=== PATIENT | female | born 1925 | race Caucasian/White ===

== ENCOUNTER 2016-08-04 18:38 | Inpatient (IN) | payer MEDICARE, BC ==
[2016-08-04] MEDS ORDERED: Sodium Chloride 0.9% 10 ML Syringe FLUSH PRN (19:33)
[2016-08-04] MEDS ORDERED: Sodium Chloride 0.9% 1,000 ML IV ONE (19:33)
[2016-08-04] MEDS ORDERED: Lidocaine 1% 50 ML MDV INJECT ONE (20:15)
--- NOTE | 2016-08-04 20:56 | EDM.PDOC ---
ED HPI GENERAL MEDICAL PROBLEM - General Chief Complaint: Head Injury Stated Complaint: [facility] Time Seen by Provider: 08/04/16 18:56 Source of Information: Reports: Detention Records History Limitations: Reports: No Limitations - History of Present Illness INITIAL COMMENTS - FREE TEXT/NARRATIVE: 89-year-old female presents for evaluation treatment of a head wound. Patient is a resident of the [facility]. She had an unwitnessed fall this afternoon. This occurred around 4 PM today. They have been unable to control the bleeding and thus she presented to the ER. She is not complaining of anything. Patient has dementia and is presently demented but is unable to provide much of a history. Review of records shows no current blood thinners. - Related Data Allergies Allergy/AdvReac Type Severity Reaction Status Date / Time No Known Allergies Allergy Verified 08/04/16 18:42 Home Meds: Home Meds Metoprolol Succinate [Toprol XL] 25 mg PO DAILY 07/06/13 [History] Ramipril [Altace] 10 mg PO DAILY 07/06/13 [History] glipiZIDE [Glipizide Xl] 2.5 mg PO DAILY 07/06/13 [History] metFORMIN [Glucophage XR] 2 tab PO BID 07/06/13 [History] Bisacodyl [Dulcolax] 10 mg RECTAL DAILY PRN 08/04/16 [History] Multivitamin with Minerals [Multivitamins with Minerals] 1 each PO DAILY [History] Sennosides [Senna] 17.2 mg PO DAILY PRN 08/04/16 [History] Past Medical History Cardiovascular History: Reports: High Cholesterol, Hypertension Gastrointestinal History: Reports: Chronic Constipation Neurological History: Reports: Other (See Below) Other Neuro History: dementia Psychiatric History: Reports: Dementia Dermatologic History: Reports: Other (See Below) Other Dermatologic History: contact dermatitis to scalp Social & Family History - Tobacco Use Smoking Status *Q: Never Smoker Second Hand Smoke Exposure: No - Alcohol Use Days Per Week of Alcohol Use: 0 - Recreational Drug Use Recreational Drug Use: No ED ROS GENERAL - Review of Systems Review Of Systems: ROS reveals no pertinent complaints other than HPI. ED EXAM, HEAD INJURY - Physical Exam Exam: See Below Exam Limited By: No Limitations General Appearance: Alert, WD/WN, No Apparent Distress, Other (orientated to person but not to place, month or year; believed to be at her baseline) Head: Scalp Lacerations (left posterior scalp 5cm gapping laceration), Scalp Ecchymosis, Scalp Hematoma, Active Bleeding Nexus Criteria: No: Posterior, Midline Cervical Tenderness, Evidence of Intoxication, Altered Level of Consciousness, Focal Neurological Deficit, Painful Distraction Injuries Eyes: Bilateral Eye: PERRL Ears: Normal External Exam Nose: Normal Inspection Throat/Mouth: Normal Inspection, Normal Lips, Normal Voice, No Airway Compromise Neck: Non-Tender, Full Range of Motion, Normal Alignment, Normal Inspection Respiratory: No Respiratory Distress, Lungs Clear, Chest Non-Tender Cardiovascular: Normal Peripheral Pulses, Regular Rate, Rhythm, Systolic Murmur (grade 3 systolic heart murmur) GI/Abdominal Exam (Abbreviated): Soft, Non-Tender Rectal (Female) Exam: Normal Exam, Normal Rectal Tone, Heme - Stool Extremities: No Evidence of Injury, Non-Tender Neurologic: Alert, Normal Mood/Affect Skin: Normal Color, Warm/Dry - [place] Coma Score Best Eye Response ([place]): (4) Open Spontaneously Best Verbal Response ([place]): (4) Confused Conversation Best Motor Response ([place]): (6) Obeys Commands ED LACERATION/WOUND & KALEIGH PROC - Laceration/Wound Repair Left Posterior Head Lac/wound length in cm: 5 Appearance: Subcutaneous, Linear Distal NVT: Neuro & Vascular Intact, No Tendon Injury Anesthetic Type: Local Local Anesthesia - Lidocaine (Xylocaine): 1% Plain Local Anesthetic Volume: 2cc Skin Prep: Saline, Sterile Drape Suture Size: 4-0 # of Sutures: 7 Suture Type: Nylon, Interrupted, Simple Sterile Dressing Applied: Nurse Complications: Yes Complication Description: Patient lost approximately 1-2 pints of blood before and during suturing process. While completing the final suture the patient had an aparent vasovagal episode where she became unresponsive for approximately 10 -15 sec and we were unable to find a pulse. The patient then became more responsive. We bolused the remaining 1L of NS in and 2 units of blood were ordered. EKG INTERPRETATION EKG Date: 08/04/16 Time: 21:35 Rhythm: NSR Rate (Beats/Min): 75 [place]: Normal P-Wave: Present QRS: Normal ST-T: Normal QT: Prolonged Comparison: NA - No Prior EKG EKG Interpretation Comments: NSR at 75 bpm. Prolonged QT interval. Reviewed by myself and Dr. Thomson. Course - Vital Signs Last Recorded V/S: Last Vital Signs Temp 36.7 C 08/04/16 23:25 Pulse 73 08/04/16 23:25 Resp 16 08/04/16 23:25 BP 110/64 08/04/16 23:25 Pulse Ox 99 08/04/16 22:46 - Orders/Labs/Meds Orders: Active Orders 24 hr Category Date Time Status Cardiac Monitoring [RC] . DIRECTED Care 08/04/16 21:06 Active EKG 12 Lead [EKG Documentation Completion] [RC] STAT Care 08/04/16 21:25 Active Peripheral IV Care [RC] . DIRECTED Care 08/04/16 19:34 Active Chest Abdomen Pelvis w Cont [CT] Stat Exams 08/04/16 20:08 Taken Head wo Cont [CT] Stat Exams 08/04/16 18:52 Taken PATIENT RETYPE [BBK] Stat Lab 08/04/16 19:55 Results RED BLOOD CELLS LP [BBK] Stat Lab 08/04/16 19:55 Results TYPE AND SCREEN [BBK] Stat Lab 08/04/16 19:55 Results Sodium Chloride 0.9% [Saline Flush] Med 08/04/16 19:33 Active 10 ml FLUSH ASDIRECTED PRN Peripheral IV Insertion Adult [OM.PC] Routine Oth 08/04/16 19:33 Ordered Transfuse Red Blood Cells [COMM] Stat Oth 08/04/16 23:08 Ordered Medication Orders Sodium Chloride (Saline Flush) 10 ml FLUSH ASDIRECTED PRN PRN Reason: Keep Vein Open Last Admin: 08/04/16 19:45 Dose: 10 ml Labs: Laboratory Tests 08/04/16 08/04/16 08/04/16 Range/Units 19:35 19:35 19:35 WBC 5.93 (3.98-10.04) K/mm3 RBC 2.86 L (3.98-5.22) M/mm3 Hgb 9.2 L (11.2-15.7) gm/L Hct 28.3 L (34.1-44.9) % MCV 99.0 H (79.4-94.8) fl MCH 32.2 (25.6-32.2) pg MCHC 32.5 (32.2-35.5) g/dl RDW Std Deviation 47.6 H (36.4-46.3) fL Plt Count 176 L (182-369) K/mm3 MPV 10.5 (9.4-12.3) fl Neut % (Auto) 72.0 H (34.0-71.1) % Lymph % (Auto) 17.9 L (19.3-51.7) % [place] % (Auto) 7.9 (4.7-12.5) % Eos % (Auto) 1.7 (0.7-5.8) Baso % (Auto) 0.3 (0.1-1.2) % Neut # (Auto) 4.27 (1.56-6.13) K/mm3 Lymph # (Auto) 1.06 L (1.18-3.74) K/mm3 [place] # (Auto) 0.47 H (0.24-0.36) K/mm3 Eos # (Auto) 0.10 (0.04-0.36) K/mm3 Baso # (Auto) 0.02 (0.01-0.08) K/mm3 PT 11.3 (8.0-13.0) SECONDS INR 1.03 APTT 27 (22-36) SECONDS Sodium 144 (136-145) mEq/L Potassium 4.0 (3.5-5.1) mEq/L Chloride 107 (98-107) mEq/L Carbon Dioxide 24 (21-32) mEq/L Anion Gap 17.0 H (5-15) BUN 32 H (7-18) mg/dL Creatinine 1.1 H (0.55-1.02) mg/dL Est Cr Clr Drug Dosing 27.96 mL/min Estimated GFR (MDRD) 47 (>60) mL/min BUN/Creatinine Ratio 29.1 H (14-18) Glucose 103 (83-115) mg/dL Calcium 8.2 L (8.5-10.1) mg/dL Total Bilirubin 0.4 (0.2-1.0) mg/dL AST 16 (15-37) U/L ALT 20 (14-59) U/L Alkaline Phosphatase 46 (46-116) U/L Troponin I (0.00-0.056) ng/mL B-Natriuretic Peptide (0-100) pg/mL Total Protein 6.6 (6.4-8.2) g/dl Albumin 3.1 L (3.4-5.0) g/dl Globulin 3.5 gm/dL Albumin/Globulin Ratio 0.9 L (1-2) Urine Color (Yellow) Urine Appearance (Clear) Urine pH (5.0-8.0) Ur Specific [place] (1.005-1.030) Urine Protein (Negative) Urine Glucose (UA) (Negative) Urine Ketones (Negative) Urine Occult Blood (Negative) Urine Nitrite (Negative) Urine Bilirubin (Negative) Urine Urobilinogen (0.2-1.0) Ur Leukocyte Esterase (Negative) Urine RBC (0-5) /hpf Urine WBC (0-5) /hpf Ur Epithelial Cells (0-5) /hpf Urine Bacteria (FEW) /hpf Hyaline Casts (0-5) /lpf Urine Mucus (FEW) /hpf Blood Type Gel Antibody Screen Crossmatch 08/04/16 08/04/16 08/04/16 Range/Units 19:35 19:35 19:55 WBC (3.98-10.04) K/mm3 RBC (3.98-5.22) M/mm3 Hgb (11.2-15.7) gm/L Hct (34.1-44.9) % MCV (79.4-94.8) fl MCH (25.6-32.2) pg MCHC (32.2-35.5) g/dl RDW Std Deviation (36.4-46.3) fL Plt Count (182-369) K/mm3 MPV (9.4-12.3) fl Neut % (Auto) (34.0-71.1) % Lymph % (Auto) (19.3-51.7) % [place] % (Auto) (4.7-12.5) % Eos % (Auto) (0.7-5.8) Baso % (Auto) (0.1-1.2) % Neut # (Auto) (1.56-6.13) K/mm3 Lymph # (Auto) (1.18-3.74) K/mm3 [place] # (Auto) (0.24-0.36) K/mm3 Eos # (Auto) (0.04-0.36) K/mm3 Baso # (Auto) (0.01-0.08) K/mm3 PT (8.0-13.0) SECONDS INR APTT (22-36) SECONDS Sodium (136-145) mEq/L Potassium (3.5-5.1) mEq/L Chloride (98-107) mEq/L Carbon Dioxide (21-32) mEq/L Anion Gap (5-15) BUN (7-18) mg/dL Creatinine (0.55-1.02) mg/dL Est Cr Clr Drug Dosing mL/min Estimated GFR (MDRD) (>60) mL/min BUN/Creatinine Ratio (14-18) Glucose (83-115) mg/dL Calcium (8.5-10.1) mg/dL Total Bilirubin (0.2-1.0) mg/dL AST (15-37) U/L ALT (14-59) U/L Alkaline Phosphatase (46-116) U/L Troponin I 0.017 (0.00-0.056) ng/mL B-Natriuretic Peptide 409 H (0-100) pg/mL Total Protein (6.4-8.2) g/dl Albumin (3.4-5.0) g/dl Globulin gm/dL Albumin/Globulin Ratio (1-2) Urine Color (Yellow) Urine Appearance (Clear) Urine pH (5.0-8.0) Ur Specific [place] (1.005-1.030) Urine Protein (Negative) Urine Glucose (UA) (Negative) Urine Ketones (Negative) Urine Occult Blood (Negative) Urine Nitrite (Negative) Urine Bilirubin (Negative) Urine Urobilinogen (0.2-1.0) Ur Leukocyte Esterase (Negative) Urine RBC (0-5) /hpf Urine WBC (0-5) /hpf Ur Epithelial Cells (0-5) /hpf Urine Bacteria (FEW) /hpf Hyaline Casts (0-5) /lpf Urine Mucus (FEW) /hpf Blood Type A POSITIVE Gel Antibody Screen Negative Crossmatch See Detail 08/04/16 08/04/16 Range/Units 22:20 22:43 WBC (3.98-10.04) K/mm3 RBC (3.98-5.22) M/mm3 Hgb 7.5 L (11.2-15.7) gm/L Hct 23.7 L (34.1-44.9) % MCV (79.4-94.8) fl MCH (25.6-32.2) pg MCHC (32.2-35.5) g/dl RDW Std Deviation (36.4-46.3) fL Plt Count (182-369) K/mm3 MPV (9.4-12.3) fl Neut % (Auto) (34.0-71.1) % Lymph % (Auto) (19.3-51.7) % [place] % (Auto) (4.7-12.5) % Eos % (Auto) (0.7-5.8) Baso % (Auto) (0.1-1.2) % Neut # (Auto) (1.56-6.13) K/mm3 Lymph # (Auto) (1.18-3.74) K/mm3 [place] # (Auto) (0.24-0.36) K/mm3 Eos # (Auto) (0.04-0.36) K/mm3 Baso # (Auto) (0.01-0.08) K/mm3 PT (8.0-13.0) SECONDS INR APTT (22-36) SECONDS Sodium (136-145) mEq/L Potassium (3.5-5.1) mEq/L Chloride (98-107) mEq/L Carbon Dioxide (21-32) mEq/L Anion Gap (5-15) BUN (7-18) mg/dL Creatinine (0.55-1.02) mg/dL Est Cr Clr Drug Dosing mL/min Estimated GFR (MDRD) (>60) mL/min BUN/Creatinine Ratio (14-18) Glucose (83-115) mg/dL Calcium (8.5-10.1) mg/dL Total Bilirubin (0.2-1.0) mg/dL AST (15-37) U/L ALT (14-59) U/L Alkaline Phosphatase (46-116) U/L Troponin I (0.00-0.056) ng/mL B-Natriuretic Peptide (0-100) pg/mL Total Protein (6.4-8.2) g/dl Albumin (3.4-5.0) g/dl Globulin gm/dL Albumin/Globulin Ratio (1-2) Urine Color Yellow (Yellow) Urine Appearance Clear (Clear) Urine pH 5.5 (5.0-8.0) Ur Specific [place] 1.015 (1.005-1.030) Urine Protein Negative (Negative) Urine Glucose (UA) Negative (Negative) Urine Ketones Negative (Negative) Urine Occult Blood Negative (Negative) Urine Nitrite Negative (Negative) Urine Bilirubin Negative (Negative) Urine Urobilinogen 0.2 (0.2-1.0) Ur Leukocyte Esterase Negative (Negative) Urine RBC 0-5 (0-5) /hpf Urine WBC 0-5 (0-5) /hpf Ur Epithelial Cells 0-5 (0-5) /hpf Urine Bacteria Not seen (FEW) /hpf Hyaline Casts 0-5 (0-5) /lpf Urine Mucus Moderate H (FEW) /hpf Blood Type Gel Antibody Screen Crossmatch Meds: Medications Generic Name Dose Route Start Last Admin Trade Name Freq PRN Reason Stop Dose Admin Sodium Chloride 10 ml 08/04/16 19:33 08/04/16 19:45 Saline Flush FLUSH 10 ml ASDIRECTED PRN Administration Keep Vein Open Discontinued Medications Generic Name Dose Route Start Last Admin Trade Name Freq PRN Reason Stop Dose Admin Sodium Chloride 1,000 mls @ 500 mls/hr 08/04/16 19:33 08/04/16 19:45 Normal Saline IV 08/04/16 21:32 500 mls/hr ONETIME ONE Administration Sodium Chloride Confirm 08/04/16 23:16 Normal Saline Administered 08/04/16 23:17 Dose 1,000 mls @ as directed .ROUTE .STK-MED ONE Lidocaine HCl 50 ml 08/04/16 20:15 08/04/16 20:23 Xylocaine 1% INJECT 08/04/16 20:16 50 ml ONETIME ONE Administration - Radiology Interpretation Free Text/Narrative:: CT of the head without contrast impression per Vrad: No acute intracranial process. Left parieto-occipital cephalohematoma with suspected superficial sterile dressing. Correlate clinically. Ct of the chest impression per vrad: No acute findings. 2.2 cm well- circumscribed mass in the left lung as above comment this does have some fatty elements. Findings may be consistent with a hamartoma. Necrotic lung mass cannot be excluded. Correlated with prior examinations and follow-up at the discretion of on site radiolody. CT of the abdomen and pelvis impression per vrad: no acute abdominal visceral injury. There is a moderate amount of fluid noted throughout the colon, correlate with any symptoms of diarrhea. No definite obstruction. Infrarenal abdominal aortic aneurysm with extensive atherosclerotic disease. Indeterminate adrenal nodules, these can be further evaluated at the discretion of on site radiologist. CT Results Date: 08/04/16 - Re-Assessments/Exams Free Text/Narrative Re-Assessment/Exam: 08/04/16 20:00 When the patient entered the ER no major active bleeding present. Oozing from her hematoma to the posterior left scalp. While cleaning the wound nursing staff appreciated an approximate 5cm laceration with active bleeding. 08/04/16 20:56 While I was suturing the patient she had an apparent vasovagal episode. We were unable to palpate a pulse. She became unresponsive for 10-15 sec. Labs include the following WBC is 5.93, hgb 9.2 and plts 176 Sodium is 144, potassium 4.0 and chloride is 107. Anion gap is 17.0 Given her persistent hypotension have ordered the full 1 L bolus in. She is anemic at 9.2. blood pressure was 140s systolic on arrival and slowly dropped into the 90s to 80s. 2 units of blood ordered due to her anemia and symptomatic hypotension. We will CT her chest and abdomen to evaluate for other possible bleeding etiologies. Plan will be to admit for at least observation given her vasovagal episode this evening. 08/04/16 23:00 trop is normal at 0.017 BNP is elevated at 409 UA is unremarkable Pt is 11.3 and INR is 1.03 Ptt is 27 Given the patient's blood pressure has maintained in the 110 to 120s systolic, we will recheck an H&H and give blood based off that need. 08/04/16 23:35 Repeat h&h shows a hgb of 7.5 and a hct of 23.7 Will give 1 unit of blood at this time. Spoke with Dr. White. Agreed to the admission. Asked we preform a hemocult prior to transfer. Hemocult preformed and is negative. 08/04/16 23:48 Departure - Departure Time of Disposition: 23:47 Disposition: Admitted As Inpatient 68 Condition: Fair Clinical Impression: Anemia, Hypotension, Laceration of scalp - Discharge Information Forms: ED Department Discharge Additional Instructions: Patient to be admitted to med/surg with tele. Dr. White accepting. - My Orders Last 24 Hours: My Active Orders 08/04/16 18:52 Head wo Cont [CT] Stat 08/04/16 19:33 Sodium Chloride 0.9% [Saline Flush] 10 ml FLUSH ASDIRECTED PRN Peripheral IV Insertion Adult [OM.PC] Routine 08/04/16 19:34 Peripheral IV Care [RC] . DIRECTED 08/04/16 19:55 PATIENT RETYPE [BBK] Stat RED BLOOD CELLS LP [BBK] Stat TYPE AND SCREEN [BBK] Stat 08/04/16 20:08 Chest Abdomen Pelvis w Cont [CT] Stat 08/04/16 21:06 Cardiac Monitoring [RC] . DIRECTED 08/04/16 21:25 EKG 12 Lead [EKG Documentation Completion] [RC] STAT 08/04/16 23:08 Transfuse Red Blood Cells [COMM] Stat - Assessment/Plan Last 24 Hours: My Active Orders 08/04/16 18:52 Head wo Cont [CT] Stat 08/04/16 19:33 Sodium Chloride 0.9% [Saline Flush] 10 ml FLUSH ASDIRECTED PRN Peripheral IV Insertion Adult [OM.PC] Routine 08/04/16 19:34 Peripheral IV Care [RC] . DIRECTED 08/04/16 19:55 PATIENT RETYPE [BBK] Stat RED BLOOD CELLS LP [BBK] Stat TYPE AND SCREEN [BBK] Stat 08/04/16 20:08 Chest Abdomen Pelvis w Cont [CT] Stat 08/04/16 21:06 Cardiac Monitoring [RC] . DIRECTED 08/04/16 21:25 EKG 12 Lead [EKG Documentation Completion] [RC] STAT 08/04/16 23:08 Transfuse Red Blood Cells [COMM] Stat
[2016-08-04] MEDS ORDERED: Sodium Chloride 0.9% 1,000 ML ONE (23:16)
--- NOTE | 2016-08-04 23:37 | PCM.HP ---
H&P History of Present Illness - General Date of Service: 08/04/16 Admit Problem/Dx: Scalp Laceration Status Post Fall and Vaso-vagal Hypotension Source of Information: Patient, Old Records, Provider, RN Notes Reviewed History Limitations: Reports: Altered Mental Status, Physical Impairment - History of Present Illness Initial Comments - Free Text/Narative: This is an 89-year-old elderly white female with past medical history of dementia without behavioral disturbance, hypertension hyperlipidemia, coronary artery disease, diabetes type 2, hypoosmolality and hyponatremia, constipation, psoriasis, and lack of coordination, who comes in for evaluation of scalp laceration that resulted in uncontrolled bleeding. Patient lives at [facility] and had an unwitnessed fall sometime this afternoon at about 4: 30 PM. Patient is a poor historian. Her history of present illness was obtained from secondary sources. On presentation to the emergency department, she was fairly stable. But while in ED receiving wound care, patient developed vasovagal hypotension and became unresponsive and w/o a pulse. At that time, patient became hypotensive with systolic blood pressure dropping to as low was 80 mmHg. She received initial volume resuscitative measures and currently receiving blood transfusion. Her initial workup in the emergency department shows a CBC significant for hemoglobin 9.2, hematocrit 28.3, MCV 99, platelet 176, and neutrophils 72%. PT 11.3, INR 1.03, and APTT 27. Her chemistry is significant for anion gap 17, BUN 32, creatinine 1.1, calcium 8.2, BNP 409, and albumin 3.1. Her UA is negative for UTI. A repeat of her Hgb later shows a 7.5. Head CT scan V-rad report reads no acute intracranial process. Left parieto-occipital cephalhematoma which suspected superficial sterile dressing. Chest CT scan V-rad report reads no acute findings. 2.2 cm well circumscribed mass in the left lung with some fatty elements. Findings may be consistent with a hamartoma. Necrotic lung mass cannot be excluded. Abdominal/Pelvis CT scan V-rad report reads no acute intracranial visceral injury. There is a moderate amount of fluid noted throughout the colon. No definite no definite obstruction. Infrarenal abdominal aortic aneurysm with extensive atherosclerotic disease. Indeterminate adrenal nodules. Patient is being admitted for for for left parieto-occipital cephal hematoma with laceration, anemia and status post vasovagal hypotension. She is DNR/DNI. - Related Data Allergies/Adverse Reactions: Allergies Allergy/AdvReac Type Severity Reaction Status Date / Time No Known Allergies Allergy Verified 08/04/16 18:42 Home Medications: Home Meds Metoprolol Succinate [Toprol XL] 25 mg PO DAILY 07/06/13 [History] Ramipril [Altace] 10 mg PO DAILY 07/06/13 [History] glipiZIDE [Glipizide Xl] 2.5 mg PO DAILY 07/06/13 [History] metFORMIN [Glucophage XR] 2 tab PO BID 07/06/13 [History] Bisacodyl [Dulcolax] 10 mg RECTAL DAILY PRN 08/04/16 [History] Multivitamin with Minerals [Multivitamins with Minerals] 1 each PO DAILY [History] Sennosides [Senna] 17.2 mg PO DAILY PRN 08/04/16 [History] Past Medical History Cardiovascular History: Reports: High Cholesterol, Hypertension Gastrointestinal History: Reports: Chronic Constipation Neurological History: Reports: Other (See Below) Other Neuro History: dementia Psychiatric History: Reports: Dementia Dermatologic History: Reports: Other (See Below) Other Dermatologic History: contact dermatitis to scalp Social & Family History - Tobacco Use Smoking Status *Q: Never Smoker Second Hand Smoke Exposure: No - Alcohol Use Days Per Week of Alcohol Use: 0 - Recreational Drug Use Recreational Drug Use: No H&P Review of Systems - Review of Systems: Review Of Systems: See Below General: Denies: Fever, Chills HEENT: Reports: No Symptoms Pulmonary: Denies: Shortness of Breath Cardiovascular: Denies: Chest Pain Gastrointestinal: Denies: Abdominal Pain, Nausea, Vomiting Genitourinary: Reports: No Symptoms Musculoskeletal: Reports: No Symptoms Skin: Reports: Wound. Denies: Cyanosis Psychiatric: Denies: Depression, Anxiety, Agitation, Hallucinations Neurological: Reports: Confusion, Pre-Existing Deficit, Difficulty Walking, Gait Disturbance Hematologic/Lymphatic: Reports: No Symptoms Immunologic: Reports: No Symptoms Exam - Exam Exam: See Below - Vital Signs Vital Signs: Last Vital Signs Temp 36.8 C 08/04/16 23:30 Pulse 76 08/04/16 23:30 Resp 15 08/04/16 23:30 BP 109/61 08/04/16 23:30 Pulse Ox 95 08/04/16 23:30 Weight: 52.707 kg - Exam General: No: Oriented, Mild Distress HEENT: Conjunctiva Clear, EACs Clear, Hearing Intact, Nares Patent, Normal Nasal Septum, Posterior Pharynx Clear, Pupils Equal, Pupils Reactive. No: Mucosa Moist & [place] Neck: Supple, Trachea Midline, +2 Carotid Pulse wo Bruit Lungs: Normal Respiratory Effort, Decreased Breath Sounds Cardiovascular: Regular Rate, Regular Rhythm Abdomen: Normal Bowel Sounds, Soft. No: Organomegaly, Tenderness, Abdominal Bruit (Female) Exam: Deferred Rectal (Female) Exam: Deferred Back Exam: Normal Inspection, Decreased Range of Motion Extremities: Normal Inspection, Normal Pulses Peripheral Pulses: 2+: Posterior Tibial (L), Posterior Tibial (R), Dorsalis Pedis (L), Dorsalis Pedis (R) Skin: Warm, Dry, Intact Skin Alteration Location (Drawings Not To Scale): 1 - left parieto-occipital: laceration with edema 2 - skin irritation/dermatitis Neuro Extensive - Mental Status: Normal Mood/Affect. No: Oriented x3, Normal Cognition, Memory Intact Neuro Extensive - Motor, Sensory, Reflexes: CN II-XII Intact (limited due to mental status change), Abnormal Gait Psychiatric: Alert, Normal Affect, Normal Mood - Patient Data Result Diagrams: 08/05/16 06:08 08/04/16 19:35 *Q Meaningful Use (ADM) - VTE *Q VTE Criteria *Q: - Stroke *Q Stroke Criteria *Q: - AMI *Q AMI Criteria *Q: Problem List Initiated/Reviewed/Updated: Yes Orders Last 24hrs: Medication Orders Sodium Chloride (Saline Flush) 10 ml FLUSH ASDIRECTED PRN PRN Reason: Keep Vein Open Last Admin: 08/04/16 19:45 Dose: 10 ml Assessment/Plan Comment:: Assessment/Plan: Acute: Confusion/MS Change - Poor historian; when asks, she replies "I forgot to write it down" - Unsure how bad is her baseline - She has underlying dementia w/o behavioral disturbance - Neuro monitoring as directed - High Fall Risk Scalp Laceration S/p Fall (Left parieto-occipital cephalhemotma) - CT scan report reads no acute intra-cranial abnormality - Wound has been sutured in ED - Routine wound nursing care: clean BID with warn soapy water and apply antibiotic after S/p Unresponsiveness - 2/2 Vasovagal from possible reduction or loss of volume - She is now alert/awake Vasovagal Hypotension - Had this episode in ED while having wound care - Volume resuscitative measures Anemia - Hgb 7.5 (9.2 initial Hgb) - No Hx/o Anemia or GI Bleed - Awaiting hemoccult test - +/- hemodilution, she has received volume resuscitation in ED - Currently transfusing blood - She may need 2 units of PRBCs - Hold off GS consult for now CT scan Findings - 2.2 cm well circumscribed mass in the left mass with fatty elements: hamartoma vs necrotic lung mass - Moderate amount of fluid noted throughout the colon: consider diarrhea - Infra-renal AAA with extensive atherosclerotic disease - Indeterminate adrenal nodules Chronic: HTN CAD HLD DM2 Hx/o Hyposomolality and Hyponatremia Constipation Psoriasis Do not hospitalized for chronic diagnosis Lack of Coordination Plan: Admit to Med-Surg Floor May transfer to ICU if she gets worse hemodynamically Routine AM Labs Resume Home Meds PT/OT consult SW/CM for d/c planning High Risk Fall Code status: DNR/DNI
[2016-08-04] MEDS ORDERED: HYDROmorphone 0.5 MG/0.5 ML Syringe IVPUSH PRN (23:38)
[2016-08-04] MEDS ORDERED: Temazepam 15 MG Cap PO PRN (23:38)
[2016-08-04] MEDS ORDERED: Bisacodyl 5 MG Tab PO PRN (23:38)
[2016-08-04] MEDS ORDERED: LORazepam 2 MG/ML MDV IV PRN (23:38)
[2016-08-04] MEDS ORDERED: Acetaminophen 325 MG Tab PO PRN (23:38)
[2016-08-04] MEDS ORDERED: Ondansetron 4 MG/2 ML SDV IV PRN (23:38)
[2016-08-04] MEDS ORDERED: Docusate Sodium 100 MG Cap PO PRN (23:38)
[2016-08-04] MEDS ORDERED: Acetaminophen/HYDROcodone 325-5 MG Tab PO PRN (23:38)
[2016-08-04] MEDS ORDERED: Promethazine 12.5 MG in Sodium Chloride 0.9% 50 ML IV PRN (23:38)
[2016-08-04] MEDS ORDERED: Albuterol/Ipratropium 3.0-0.5 MG/3 ML Neb Soln NEB PRN (23:38)
[2016-08-04] MEDS ORDERED: Metoprolol Tartrate 5 MG/5 ML SDV IVPUSH PRN (23:41)
[2016-08-04] MEDS ORDERED: hydrALAZINE 20 MG/ML SDV IVPUSH PRN (23:41)
[2016-08-04] MEDS ORDERED: Bisacodyl 10 MG Supp RECTAL PRN (23:42)
[2016-08-04] MEDS ORDERED: Sennosides 8.6 MG Tab PO PRN (23:42)
[2016-08-04] MEDS ORDERED: 50% Dextrose in Water 50 ML Syringe IVPUSH PRN (23:42)
[2016-08-04] MEDS ORDERED: Insulin Aspart 100 Units/ML 3 ML Pen SUBCUT SCH (23:45)
--- NOTE | 2016-08-05 07:04 | PCM.PN ---
- General Info Date of Service: 08/05/16 Admission Dx/Problem (Free Text): Scalp Laceration Status Post Fall and Vaso-vagal Hypotension Subjective Update: Follow Up Functional Status: Reports: pain controlled, tolerating diet, urinating. Denies : new symptoms - Review of Systems General: Denies: Fever, Weakness, Fatigue, Malaise, Chills HEENT: Reports: no symptoms Pulmonary: Denies: shortness of breath Cardiovascular: Denies: Chest Pain Gastrointestinal: Denies: Abdominal pain, Nausea, Vomiting Genitourinary: Reports: no symptoms Musculoskeletal: Reports: no symptoms Skin: Denies: cyanosis, rash Neurological: Reports: Confusion (pleasantly), Pre-Existing Deficit, Difficulty Walking, Gait Disturbance Psychiatric: Denies: depression, anxiety, agitation, hallucinations Systems Review Comment:: No overnight or acute issues. When asked how she is doing she stated "so far so good". She has no acute issues. Her Hgb and vitals remains stable. Her mg level is low at 1.3. - Patient Data Vitals - most recent: Last Vital Signs Temp 36.6 C 08/05/16 05:13 Pulse 61 08/05/16 05:13 Resp 18 08/05/16 05:13 BP 115/68 08/05/16 05:13 Pulse Ox 97 08/05/16 05:13 Weight - most recent: 52.707 kg I&O - last 24 hours: Intake & Output 08/04/16 08/05/16 08/05/16 22:59 06:59 14:59 Intake Total 820 Balance 820 Lab Results last 24 hrs: Laboratory Results - last 24 hr 08/05/16 08/05/16 Range/Units 02:40 06:08 WBC 5.99 (3.98-10.04) K/mm3 RBC 3.24 L (3.98-5.22) M/mm3 Hgb 10.1 L (11.2-15.7) gm/L Hct 30.3 L (34.1-44.9) % MCV 93.5 (79.4-94.8) fl MCH 31.2 (25.6-32.2) pg MCHC 33.3 (32.2-35.5) g/dl RDW Std Deviation 52.8 H (36.4-46.3) fL Plt Count 125 L (182-369) K/mm3 MPV 10.5 (9.4-12.3) fl Neut % (Auto) 71.2 H (34.0-71.1) % Lymph % (Auto) 22.2 (19.3-51.7) % [place] % (Auto) 5.5 (4.7-12.5) % Eos % (Auto) 0.7 (0.7-5.8) Baso % (Auto) 0.2 (0.1-1.2) % Neut # (Auto) 4.27 (1.56-6.13) K/mm3 Lymph # (Auto) 1.33 (1.18-3.74) K/mm3 [place] # (Auto) 0.33 (0.24-0.36) K/mm3 Eos # (Auto) 0.04 (0.04-0.36) K/mm3 Baso # (Auto) 0.01 (0.01-0.08) K/mm3 MRSA (PCR) Negative Med Orders - Current: Current Medications Acetaminophen (Tylenol) 650 mg PO Q4H PRN PRN Reason: Pain (Mild 1-3)/fever Hydrocodone Bitart/Acetaminophen (Beaver 325-5 Mg) 1 tab PO Q4H PRN PRN Reason: Pain (moderate 4-6) Albuterol/Ipratropium (Duoneb 3.0-0.5 Mg/3 Ml) 3 ml NEB Q4H PRN PRN Reason: Shortness Of Breath/wheezing Bisacodyl (Dulcolax) 5 mg PO DAILY PRN PRN Reason: Constipation Bisacodyl (Dulcolax) 10 mg RECTAL DAILY PRN PRN Reason: Constipation Dextrose/Water (Dextrose 50% In Water) 50 ml IVPUSH ASDIRECTED PRN PRN Reason: Hypoglycemia Docusate Sodium (Colace) 100 mg PO BID PRN PRN Reason: Constipation Glipizide (Glucotrol Xl) 2.5 mg PO WITHBREAKFAST JOCELYNN Hydralazine HCl (Apresoline) 10 mg IVPUSH Q4H PRN PRN Reason: Hypertension Hydromorphone HCl (Dilaudid) 0.25 mg IVPUSH Q2H PRN PRN Reason: Pain (severe 7-10) Promethazine HCl 12.5 mg/ (Sodium Chloride) 50.5 mls @ 100 mls/hr IV Q6H PRN PRN Reason: Nausea/Vomiting Insulin Aspart (Novolog) 0 unit SUBCUT ASDIRECTED JOCELYNN PRN Reason: Protocol Lisinopril (Prinivil) 20 mg PO DAILY [facility] Lorazepam (Ativan) 0.25 mg IV Q6H PRN PRN Reason: Anxiety Magnesium Sulfate (Pharmacy To Dose - Magnesium Replacement) 1 dose .XX ASDIRECTED [facility] Metoprolol Succinate (Toprol Xl) 25 mg PO DAILY [facility] [place] Metoprolol Tartrate (Lopressor) 5 mg IVPUSH Q4H PRN PRN Reason: Tachycardia Non-Formulary Medication (Metformin) 2 tab PO BID [facility] [place] Ondansetron HCl (Zofran) 4 mg IV Q6H PRN PRN Reason: Nausea/Vomiting Potassium Chloride (Pharmacy To Dose - Potassium Replacement) 1 dose .XX ASDIRECTED [facility] [place] Senna (Senna) 17.2 mg PO DAILY PRN PRN Reason: Constipation Senna/Docusate Sodium (Senna Plus) 1 tab PO BID PRN PRN Reason: Constipation Sodium Chloride (Saline Flush) 10 ml FLUSH ASDIRECTED PRN PRN Reason: Keep Vein Open Last Admin: 08/04/16 19:45 Dose: 10 ml Temazepam (Restoril) 7.5 mg PO BEDTIME PRN PRN Reason: Sleep Vit A/Vit C/Vit E/Selen/Cu/Zn/Lutei (Icaps Mv) 1 tab PO DAILY JOCELYNN Discontinued Medications Sodium Chloride (Normal Saline) 1,000 mls @ 500 mls/hr IV ONETIME ONE Stop: 08/04/16 21:32 Last Admin: 08/04/16 19:45 Dose: 500 mls/hr Sodium Chloride (Normal Saline) Confirm Administered Dose 1,000 mls @ as directed .ROUTE .STK-MED ONE Stop: 08/04/16 23:17 Last Admin: 08/04/16 23:50 Dose: 1,000 ml Lidocaine HCl (Xylocaine 1%) 50 ml INJECT ONETIME ONE Stop: 08/04/16 20:16 Last Admin: 08/04/16 20:23 Dose: 50 ml - Exam General: alert, cooperative, no acute distress HEENT: Pupils equal, Pupils reactive, EOMI, Mucous membr. moist/pink, Other ( scalp laceration stable) Neck: supple, trachea midline, no JVD Lungs: Clear to auscultation, Normal respiratory effort Cardiovascular: Regular Rate, Regular Rhythm Abdomen: bowel sounds present, soft, no tenderness, no distension (Female) Exam: Deferred Back Exam: Normal Inspection, Decreased Range of Motion Extremities: no edema, normal pulses Skin: warm, dry, intact Wound/Incisions: healing well, dressing dry and intact, no drainage, erythema improving Neurological: no new focal deficit Psy/Mental Status: alert, normal affect, normal mood - Problem List Review Problem List Initiated/Reviewed/Updated: Yes - My Orders Last 24 Hours: My Active Orders 08/04/16 23:38 Intake and Output [RC] 04,16 Oxygen Therapy [RC] PRN Up With Assistance [RC] ASDIRECTED Up ad Milvia [RC] ASDIRECTED VTE/DVT Education [RC] PER UNIT ROUTINE Vital Signs [RC] Q4HR Acetaminophen [Tylenol] 650 mg PO Q4H PRN Acetaminophen/HYDROcodone [Beaver 325-5 MG] 1 tab PO Q4H PRN Albuterol/Ipratropium [DuoNeb 3.0-0.5 MG/3 ML] 3 ml NEB Q4H PRN Bisacodyl [Dulcolax] 5 mg PO DAILY PRN Docusate Sodium [Colace] 100 mg PO BID PRN Docusate Sodium/Sennosides [Senna Plus] 1 tab PO BID PRN HYDROmorphone [Dilaudid] 0.25 mg IVPUSH Q2H PRN LORazepam [Ativan] 0.25 mg IV Q6H PRN Ondansetron [Zofran] 4 mg IV Q6H PRN Promethazine [Phenergan] 12.5 mg Sodium Chloride 0.9% [Normal Saline] 50 ml IV Q6H Temazepam [Restoril] 7.5 mg PO BEDTIME PRN Sequential Compression Device [OM.PC] Per Unit Routine Resuscitation Status Routine 08/04/16 23:39 Antiembolic Devices [RC] PER UNIT ROUTINE RT Aerosol Therapy [RC] ASDIRECTED 08/04/16 23:40 Consult to Case Management [CONS] Routine Consult to [place] [CONS] Routine Consult to Spiritual Care [CONS] Routine OT Evaluation and Treatment [CONS] Routine PT Evaluation and Treatment [CONS] Routine 08/04/16 23:41 Metoprolol Tartrate [Lopressor] 5 mg IVPUSH Q4H PRN hydrALAZINE [Apresoline] 10 mg IVPUSH Q4H PRN 08/04/16 23:42 Blood Glucose Check, Bedside [RC] Bisacodyl [Dulcolax] 10 mg RECTAL DAILY PRN Dextrose 50% in Water 50 ml IVPUSH ASDIRECTED PRN Sennosides [Senna] 17.2 mg PO DAILY PRN 08/04/16 23:43 Precautions [COMM] Routine 08/04/16 23:44 Neurological Monitoring [RC] ASDIRECTED 08/04/16 23:45 Insulin Aspart [NovoLOG] See Protocol SUBCUT ASDIRECTED Magnesium Rep Pharmacy to Dose [Pharmacy to Dose - Magnesium Replacement] 1 dose .XX ASDIRECTED Potassium Rep Pharmacy to Dose [Pharmacy to Dose - Potassium Replacement] 1 dose .XX ASDIRECTED 08/04/16 Dinner Regular Diet [DIET] 08/05/16 03:16 Communication Order [RC] 08/05/16 06:08 BASIC METABOLIC PANEL,BMP [CHEM] AM C-REACTIVE PROTEIN [CHEM] AM MAGNESIUM [CHEM] AM 08/05/16 07:00 glipiZIDE [Glucotrol XL] 2.5 mg PO WITHBREAKFAST 08/05/16 09:00 Neuro Check [RC] BID Lisinopril [Prinivil] 20 mg PO DAILY Metoprolol Succinate [Toprol XL] 25 mg PO DAILY Multivitamins/Min/FA/Lut/Zeax [ICaps MV] 1 tab PO DAILY metFORMIN 2 tab PO BID 08/06/16 05:11 BASIC METABOLIC PANEL,BMP [CHEM] AM CBC WITH AUTO DIFF [HEME] AM MAGNESIUM [CHEM] AM 08/07/16 05:11 BASIC METABOLIC PANEL,BMP [CHEM] AM CBC WITH AUTO DIFF [HEME] AM MAGNESIUM [CHEM] AM 08/08/16 05:11 BASIC METABOLIC PANEL,BMP [CHEM] AM CBC WITH AUTO DIFF [HEME] AM MAGNESIUM [CHEM] AM 08/09/16 05:11 BASIC METABOLIC PANEL,BMP [CHEM] AM CBC WITH AUTO DIFF [HEME] AM MAGNESIUM [CHEM] AM - Plan Plan:: Assessment/Plan: Acute: Confusion/MS Change - She is pleasantly confused: possibly at baseline - Poor historian; when asks, she replies "I forgot to write it down" - She has underlying dementia w/o behavioral disturbance - Neuro monitoring benign, will d/c it - High Fall Risk Scalp Laceration S/p Fall (Left parieto-occipital cephalhemotma) - CT scan report reads no acute intra-cranial abnormality - Wound has been sutured in ED - Routine wound nursing care: clean BID with warn soapy water and apply antibiotic after - Stable Anemia - Hgb 7.5 (9.2 initial Hgb) ---> 10.1 s/p 2 units of blood transfusion - No Hx/o Anemia or GI Bleed - Awaiting hemoccult test - +/- hemodilution, she has received volume resuscitation in ED - Hold off GS consult for now CT scan Findings - 2.2 cm well circumscribed mass in the left mass with fatty elements: hamartoma vs necrotic lung mass - Moderate amount of fluid noted throughout the colon: consider diarrhea - Infra-renal AAA with extensive atherosclerotic disease - Indeterminate adrenal nodules Resolved: S/p Unresponsiveness - 2/2 Vasovagal from possible reduction or loss of volume - She is now alert/awake Vasovagal Hypotension - Had this episode in ED while having wound care - Volume resuscitative measures Chronic: HTN CAD HLD DM2 Hx/o Hyposomolality and Hyponatremia Constipation Psoriasis Do not hospitalized for chronic diagnosis Lack of Coordination Plan: She is clinically stable Routine AM Labs Continue PT/OT SW/CM for d/c planning High Risk Fall Code status:DNR/DNI
--- NOTE | 2016-08-05 07:46 | CT ---
Head CT Technique: Multiple axial sections through the brain were obtained. Intravenous contrast was not utilized. Comparison: Previous head CT exam of 07/06/13. Findings: Diffuse soft tissue swelling and scalp injury are seen on the left side. Ventricles along with basal cisterns and sulci over the convexities are mildly prominent. No abnormal parenchymal densities are seen. No evidence of intracranial hemorrhage. No midline shift or mass effect is seen. Mild atherosclerotic calcifications are seen within the vertebral vessels and carotid siphon. Visualized sinuses show minimal mucosal thickening within the left maxillary sinus which is felt to be incidental. No acute calvarial abnormality is seen. Impression: 1. Scalp injury. 2. No acute intracranial abnormality is identified. No skull fracture is seen. Diagnostic code #2 Agree with preliminary report issued by [facility] ([facility] preliminary report dictated on 08/04/16, 9:27 PM Central Time)
--- NOTE | 2016-08-05 08:21 | CT ---
CT chest Technique: Multiple axial sections were obtained from above the dome of the diaphragm inferiorly through the lung bases. Intravenous contrast was utilized. Comparison: No previous study. Findings: Ascending aorta is slightly aneurysmal at 4.3 cm compared to descending aorta at 2.7 cm. Coronary artery calcification is seen. Mediastinum and hilar regions show no adenopathy or mass. No pericardial thickening is identified. Heart is mildly enlarged. Mass identified within the superior segment of the left lower lung measuring approximately 2.3 cm x 2.3 cm. This shows some central fatty areas and suggest the possibility of a hamartoma. No correlating chest imaging is available to determine stability. Minimal dependent atelectasis is seen within both posterior lungs. Lungs otherwise are clear. Bone window settings were reviewed which show several mild superior endplate concavities within the upper thoracic spine. Scattered endplate osteophytes are seen. Impression: 1. 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 No correlating chest imaging is available to determine stability. 2. Mild aneurysmal dilatation of the ascending aorta at 4.3 cm comparing to the descending aorta 2.7 cm. 3. Other incidental findings. Diagnostic code #3 Agree with preliminary report issued by [email or web address] ([facility] preliminary report dictated on 08/04/16, 11:40 PM Central Time) CT abdomen and pelvis Technique: Multiple axial sections were obtained from above the dome of the diaphragm inferiorly through the pubic symphysis. Intravenous contrast was utilized. No oral contrast has been given. Delayed images were also obtained. Findings: Liver shows no focal parenchymal abnormality. Spleen appears within normal limits. Small nodules are noted within both adrenal glands which given the patient's age are likely incidental. Pancreas is within normal limits. Kidneys show symmetric contrast enhancement without hydronephrosis or mass. Aorta shows mild aneurysmal dilatation distally at 2.7 cm. Right common iliac artery is also ectatic. Atherosclerotic change is noted within the aorta. No retroperitoneal adenopathy or mesenteric abnormalities are seen. No pelvic mass or adenopathy is seen. Delayed images show contrast within the bladder and within portions of nondilated ureters. Bone window settings were reviewed which show disc space narrowing and scattered endplate osteophytes within the lumbar spine. Nothing acute is seen. Impression: 1. Small nodule within each adrenal gland believed to be incidental. 2. Distal abdominal aortic aneurysm at 2.7 cm. 3. Other incidental findings as noted above. Nothing acute is appreciated. Diagnostic code #3 Agree with preliminary report issued by [facility] ([facility] preliminary report dictated on 08/04/16, 11:40 PM Central Time)
[2016-08-05] MEDS: metFORMIN 500 MG Tab PO SCH ×2 (08:30→21:55)
[2016-08-05] MEDS: glipiZIDE 2.5 MG Tab.ER PO SCH (08:31)
[2016-08-05] MEDS: Metoprolol Succinate 25 MG Tab.ER PO SCH (08:31)
[2016-08-05] MEDS: Lisinopril 20 MG Tab PO SCH (08:31)
[2016-08-05] MEDS: Multivitamins with Minerals/Folic Acid/Lutein/Zeaxanth Tab PO SCH (08:31)
[2016-08-05] MEDS: Magnesium Sulfate/Water 2 GM in Premix Bag 1 BAG IV SCH ×2 (08:38→10:46)
[2016-08-05] MEDS ORDERED: Diphtheria,Pertussis(Acell),Tetanus Vaccine 0.5 ML SDV inactive IM ONE (09:22)
[2016-08-06] MEDS: glipiZIDE 2.5 MG Tab.ER PO SCH (06:35)
[2016-08-06] MEDS ORDERED: Insulin Aspart 100 Units/ML 3 ML Pen SUBCUT SCH (07:00)
[2016-08-06] MEDS: Metoprolol Succinate 25 MG Tab.ER PO SCH (09:19)
[2016-08-06] MEDS: Multivitamins with Minerals/Folic Acid/Lutein/Zeaxanth Tab PO SCH (09:19)
[2016-08-06] MEDS: metFORMIN 500 MG Tab PO SCH (09:23)
[2016-08-06] MEDS: Lisinopril 20 MG Tab PO SCH (09:23)
--- NOTE | 2016-08-06 11:04 | PCM.DCSUM1 ---
Discharge Summary - Hospital Course Free Text/Narrative:: This is an 89-year-old elderly white female with past medical history of dementia without behavioral disturbance, hypertension hyperlipidemia, coronary artery disease, diabetes type 2, hypoosmolality and hyponatremia, constipation, psoriasis, and lack of coordination, who comes in for evaluation of scalp laceration that resulted in uncontrolled bleeding. Patient lives at [facility] and had an unwitnessed fall sometime this afternoon at about 4: 30 PM. Patient is a poor historian. Her history of present illness was obtained from secondary sources. On presentation to the emergency department, she was fairly stable. But while in ED receiving wound care, patient developed vasovagal hypotension and became unresponsive and w/o a pulse. At that time, patient became hypotensive with systolic blood pressure dropping to as low was 80 mmHg. She received initial volume resuscitative measures and currently receiving blood transfusion. Her initial workup in the emergency department shows a CBC significant for hemoglobin 9.2, hematocrit 28.3, MCV 99, platelet 176, and neutrophils 72%. PT 11.3, INR 1.03, and APTT 27. Her chemistry is significant for anion gap 17, BUN 32, creatinine 1.1, calcium 8.2, BNP 409, and albumin 3.1. Her UA is negative for UTI. A repeat of her Hgb later shows a 7.5. Head CT scan V-rad report reads no acute intracranial process. Left parieto-occipital cephalhematoma which suspected superficial sterile dressing. Chest CT scan V-rad report reads no acute findings. 2.2 cm well circumscribed mass in the left lung with some fatty elements. Findings may be consistent with a hamartoma. Necrotic lung mass cannot be excluded. Abdominal/Pelvis CT scan V-rad report reads no acute intracranial visceral injury. There is a moderate amount of fluid noted throughout the colon. No definite no definite obstruction. Infrarenal abdominal aortic aneurysm with extensive atherosclerotic disease. Indeterminate adrenal nodules. Patient is being admitted for for for left parieto-occipital cephal hematoma with laceration, anemia and status post vasovagal hypotension. She is DNR/DNI. - Discharge Data Discharge Date: 08/06/16 (admit date 08/04/16) Discharge Disposition: DC/Tfer to Skilled Nursing [facility] 65 Condition: Good - Patient Summary/Data Operative Procedure(s) Performed: None Complications: None Consults: Consultations 08/04/16 23:40 Consult to Case Management [CONS] Routine Consult to Bonding Machine Operator [CONS] Routine Consult to Spiritual Care [CONS] Routine OT Evaluation and Treatment [CONS] Routine PT Evaluation and Treatment [CONS] Routine Labs Pending at D/C: None Recommended Follow-up Testing/Procedures: Follow up with PCP wtihin one week of discharge; CBC and BMP at that time Suture removal to scalp in one week. Planned Operative Procedure(s) after DC: None Hospital Course: As above - Patient Instructions Diet: Usual Diet as Tolerated Activity: As Tolerated (PT/OT to continue at MD) Driving: Do Not Drive Showering/Bathing: May Shower Notify Provider of: Fever, Increased Pain, Nausea and/or Vomiting - Discharge Plan Prescriptions/Med Rec: Ferrous Sulfate [Slow Fe] 142 mg PO BID #60 tablet.er Home Medications: Home Meds Metoprolol Succinate [Toprol XL] 25 mg PO DAILY 07/06/13 [History] Ramipril [Altace] 10 mg PO DAILY 07/06/13 [History] glipiZIDE [Glipizide Xl] 2.5 mg PO DAILY 07/06/13 [History] metFORMIN [Glucophage XR] 2 tab PO BID 07/06/13 [History] Bisacodyl [Dulcolax] 10 mg RECTAL DAILY PRN 08/04/16 [History] Multivitamin with Minerals [Multivitamins with Minerals] 1 each PO DAILY [History] Sennosides [Senna] 17.2 mg PO DAILY PRN 08/04/16 [History] Ferrous Sulfate [Slow Fe] 142 mg PO BID #60 tablet.er 08/06/16 [Rx] Patient Handouts: Suture Removal, Care After, Laceration Care, Pediatric, Easy- to-Read, Managing Your High Blood Pressure, Hypertension Forms: ED Department Discharge Referrals: Chris Nassar Jr, MD [Primary Care Provider] - - Discharge Summary/Plan Comment DC Time >30 min.: Yes (40 min) - General Info Date of Service: 08/06/16 Admission Dx/Problem (Free Text: Scalp Laceration Status Post Fall and Vaso-vagal Hypotension Melissa is seen this morning on team rounding. She is pleasantly confused, denies any c/o pain, no headache or other complaints this morning. VSS, neuro checks unremarkable. Functional Status: Reports: pain controlled, tolerating diet, ambulating, urinating - Review of Systems General: Reports: No Symptoms HEENT: Reports: no symptoms Pulmonary: Reports: no symptoms Cardiovascular: Reports: No Symptoms Gastrointestinal: Reports: No symptoms Genitourinary: Reports: no symptoms Skin: Reports: other (lac to posterior head/occiput; sutures intact) Neurological: Reports: Confusion Psychiatric: Reports: confusion - Patient Data Vitals - Most Recent: Last Vital Signs Temp 97.5 F 08/06/16 08:52 Pulse 71 08/06/16 09:22 Resp 12 08/06/16 08:52 BP 137/80 08/06/16 09:23 Pulse Ox 96 08/06/16 09:22 Weight - Most Recent: 116 lb 1.6 oz I&O - Last 24 hours: Intake & Output 08/05/16 08/06/16 08/06/16 22:59 06:59 14:59 Intake Total 1067 420 240 Output Total 350 100 Balance 717 320 240 Lab Results - Last 24 hrs: Laboratory Results - last 24 hr 08/05/16 08/06/16 08/06/16 Range/Units 21:48 06:22 07:00 WBC (3.98-10.04) K/mm3 RBC (3.98-5.22) M/mm3 Hgb (11.2-15.7) gm/L Hct (34.1-44.9) % MCV (79.4-94.8) fl MCH (25.6-32.2) pg MCHC (32.2-35.5) g/dl RDW Std Deviation (36.4-46.3) fL Plt Count (182-369) K/mm3 MPV (9.4-12.3) fl Neut % (Auto) (34.0-71.1) % Lymph % (Auto) (19.3-51.7) % [place] % (Auto) (4.7-12.5) % Eos % (Auto) (0.7-5.8) Baso % (Auto) (0.1-1.2) % Neut # (Auto) (1.56-6.13) K/mm3 Lymph # (Auto) (1.18-3.74) K/mm3 [place] # (Auto) (0.24-0.36) K/mm3 Eos # (Auto) (0.04-0.36) K/mm3 Baso # (Auto) (0.01-0.08) K/mm3 Manual Slide Review Sodium (136-145) mEq/L Potassium (3.5-5.1) mEq/L Chloride (98-107) mEq/L Carbon Dioxide (21-32) mEq/L Anion Gap (5-15) BUN (7-18) mg/dL Creatinine (0.55-1.02) mg/dL Est Cr Clr Drug Dosing mL/min Estimated GFR (MDRD) (>60) mL/min BUN/Creatinine Ratio (14-18) Glucose (83-115) mg/dL POC Glucose 82 L 66 L 192 H (83-110) mg/dL Calcium (8.5-10.1) mg/dL Magnesium (1.8-2.4) mg/dl Iron (50-170) ug/dL TIBC (100-400) ug/dL % Saturation (20-55) % Transferrin (202-364) mg/dL 08/06/16 08/06/16 08/06/16 Range/Units 07:38 07:38 09:00 WBC 6.69 (3.98-10.04) K/mm3 RBC 3.60 L (3.98-5.22) M/mm3 Hgb 11.1 L (11.2-15.7) gm/L Hct 33.7 L (34.1-44.9) % MCV 93.6 (79.4-94.8) fl MCH 30.8 (25.6-32.2) pg MCHC 32.9 (32.2-35.5) g/dl RDW Std Deviation 55.9 H (36.4-46.3) fL Plt Count 132 L (182-369) K/mm3 MPV 10.3 (9.4-12.3) fl Neut % (Auto) 55.6 (34.0-71.1) % Lymph % (Auto) 34.4 (19.3-51.7) % [place] % (Auto) 7.8 (4.7-12.5) % Eos % (Auto) 1.8 (0.7-5.8) Baso % (Auto) 0.3 (0.1-1.2) % Neut # (Auto) 3.72 (1.56-6.13) K/mm3 Lymph # (Auto) 2.30 (1.18-3.74) K/mm3 [place] # (Auto) 0.52 H (0.24-0.36) K/mm3 Eos # (Auto) 0.12 (0.04-0.36) K/mm3 Baso # (Auto) 0.02 (0.01-0.08) K/mm3 Manual Slide Review Abnormal smear Sodium 142 (136-145) mEq/L Potassium 4.2 (3.5-5.1) mEq/L Chloride 108 H (98-107) mEq/L Carbon Dioxide 26 (21-32) mEq/L Anion Gap 12.2 (5-15) BUN 22 H (7-18) mg/dL Creatinine 1.0 (0.55-1.02) mg/dL Est Cr Clr Drug Dosing 30.76 mL/min Estimated GFR (MDRD) 52 (>60) mL/min BUN/Creatinine Ratio 22.0 H (14-18) Glucose 145 H (83-115) mg/dL POC Glucose (83-110) mg/dL Calcium 8.4 L (8.5-10.1) mg/dL Magnesium 2.1 (1.8-2.4) mg/dl Iron 42 L (50-170) ug/dL TIBC 169 (100-400) ug/dL % Saturation 25 (20-55) % Transferrin 135 L (202-364) mg/dL Med Orders - Current: Current Medications Acetaminophen (Tylenol) 650 mg PO Q4H PRN PRN Reason: Pain (Mild 1-3)/fever Hydrocodone Bitart/Acetaminophen ([place] 325-5 Mg) 1 tab PO Q4H PRN PRN Reason: Pain (moderate 4-6) Albuterol/Ipratropium (Duoneb 3.0-0.5 Mg/3 Ml) 3 ml NEB Q4H PRN PRN Reason: Shortness Of Breath/wheezing Bisacodyl (Dulcolax) 5 mg PO DAILY PRN PRN Reason: Constipation Last Admin: 08/06/16 09:19 Dose: 5 mg Bisacodyl (Dulcolax) 10 mg RECTAL DAILY PRN PRN Reason: Constipation Dextrose/Water (Dextrose 50% In Water) 50 ml IVPUSH ASDIRECTED PRN PRN Reason: Hypoglycemia Last Admin: 08/06/16 06:26 Dose: 50 ml Docusate Sodium (Colace) 100 mg PO BID PRN PRN Reason: Constipation Ferrous Sulfate (Slow Fe) 140 mg PO BIDMEALS [facility] Glipizide (Glucotrol Xl) 2.5 mg PO WITHBREAKFAST [facility] Last Admin: 08/06/16 06:35 Dose: Not Given Hydralazine HCl (Apresoline) 10 mg IVPUSH Q4H PRN PRN Reason: Hypertension Hydromorphone HCl (Dilaudid) 0.25 mg IVPUSH Q2H PRN PRN Reason: Pain (severe 7-10) Promethazine HCl 12.5 mg/ (Sodium Chloride) 50.5 mls @ 100 mls/hr IV Q6H PRN PRN Reason: Nausea/Vomiting Insulin Aspart (Novolog) 0 unit SUBCUT BID@0700,2100 [facility] PRN Reason: Protocol Last Admin: 08/06/16 08:11 Dose: Not Given Lisinopril (Prinivil) 20 mg PO DAILY [facility] Last Admin: 08/06/16 09:23 Dose: 20 mg Lorazepam (Ativan) 0.25 mg IV Q6H PRN PRN Reason: Anxiety Magnesium Sulfate (Pharmacy To Dose - Magnesium Replacement) 1 dose .XX ASDIRECTED [facility] Metformin HCl (Glucophage) 1,000 mg PO BID [facility] Last Admin: 08/06/16 09:23 Dose: Not Given Metoprolol Succinate (Toprol Xl) 25 mg PO DAILY [facility] Last Admin: 08/06/16 09:19 Dose: 25 mg Metoprolol Tartrate (Lopressor) 5 mg IVPUSH Q4H PRN PRN Reason: Tachycardia Ondansetron HCl (Zofran) 4 mg IV Q6H PRN PRN Reason: Nausea/Vomiting Potassium Chloride (Pharmacy To Dose - Potassium Replacement) 1 dose .XX ASDIRECTED [facility] Senna (Senna) 17.2 mg PO DAILY PRN PRN Reason: Constipation Senna/Docusate Sodium (Senna Plus) 1 tab PO BID PRN PRN Reason: Constipation Sodium Chloride (Saline Flush) 10 ml FLUSH ASDIRECTED PRN PRN Reason: Keep Vein Open Last Admin: 08/04/16 19:45 Dose: 10 ml Temazepam (Restoril) 7.5 mg PO BEDTIME PRN PRN Reason: Sleep Vit A/Vit C/Vit E/Selen/Cu/Zn/Lutei (Icaps Mv) 1 tab PO DAILY [facility] Last Admin: 08/06/16 09:19 Dose: 1 tab Discontinued Medications Diphtheria/Tetanus/Acell Pertussis (Boostrix) 0.5 ml IM .ONCE ONE Stop: 08/05/16 09:23 Sodium Chloride (Normal Saline) 1,000 mls @ 500 mls/hr IV ONETIME ONE Stop: 08/04/16 21:32 Last Admin: 08/04/16 19:45 Dose: 500 mls/hr Sodium Chloride (Normal Saline) Confirm Administered Dose 1,000 mls @ as directed .ROUTE .STK-MED ONE Stop: 08/04/16 23:17 Last Admin: 08/04/16 23:50 Dose: 1,000 ml Magnesium Sulfate 2 gm/ Premix 50 mls @ 25 mls/hr IV Q2H JOCELYNN Stop: 08/05/16 12:14 Last Admin: 08/05/16 10:46 Dose: 25 mls/hr Insulin Aspart (Novolog) 0 unit SUBCUT ASDIRECTED [facility] PRN Reason: Protocol Lidocaine HCl (Xylocaine 1%) 50 ml INJECT ONETIME ONE Stop: 08/04/16 20:16 Last Admin: 08/04/16 20:23 Dose: 50 ml - Exam Quality Assessment: Reports: DVT prophylaxis General: Reports: alert, cooperative, no acute distress HEENT: Reports: Pupils equal, EOMI, Mucous membr. moist/pink Neck: Reports: supple Lungs: Reports: Clear to auscultation, Normal respiratory effort Cardiovascular: Reports: Regular Rate, Regular Rhythm, Murmurs (grade 2 systolic ) Abdomen: Reports: bowel sounds present, soft, no tenderness, no distension (Female) Exam: Deferred Rectal (Female) Exam: Deferred Back Exam: Reports: Normal Inspection Extremities: Reports: no edema, no calf tenderness Wound/Incisions: Reports: healing well (sutures to occiput) Neurological: Reports: other (pleasantly confused; baseline dementia) Psy/Mental Status: Reports: alert, normal affect, normal mood *Q Meaningful Use (DIS) - VTE *Q VTE Criteria *Q: - Stroke *Q Stroke Criteria *Q: - AMI *Q AMI Criteria *Q:
[2016-08-06 13:21] VITALS: BP 141/85
[2016-08-06] MEDS ORDERED: Ferrous Sulfate 140 MG Tab PO SCH (17:00)
== END 2016-08-06 13:13 | DRG 86 ==
LOC: JD.ED 18:38 → JD.MS 23:17 → UNDOADMIN 23:17 → JD.MS 08-05 00:16 → UNDODISIN 08-06 13:13
PROVIDERS: ADMIT Internal Medicine; ATTEND Internal Medicine
DX: S06.2X0A Diffuse traumatic brain injury without loss of consciousness, initial encounter (principal); E87.1 Hypo-osmolality and hyponatremia; I95.9 Hypotension, unspecified; R41.82 Altered mental status, unspecified; S01.01XA Laceration without foreign body of scalp, initial encounter; E78.00 Pure hypercholesterolemia, unspecified; W19.XXXA Unspecified fall, initial encounter; D64.9 Anemia, unspecified; R91.8 Other nonspecific abnormal finding of lung field; I25.10 Atherosclerotic heart disease of native coronary artery without angina pectoris; I10 Essential (primary) hypertension; E78.5 Hyperlipidemia, unspecified; E11.9 Type 2 diabetes mellitus without complications; Z79.84 Long term (current) use of oral hypoglycemic drugs; K59.09 Other constipation; L40.9 Psoriasis, unspecified; F82 Specific developmental disorder of motor function; Z66 Do not resuscitate; Z79.899 Other long term (current) drug therapy; F03.90 Unspecified dementia, unspecified severity, without behavioral disturbance, psychotic disturbance, mood disturbance, and anxiety; Z91.81 History of falling
CPT/HCPCS: 12032; 36415; 36430; 70450; 71260; 74177; 80053; 81001; 83880; 84484; 85014; 85018; 85025; 85610; 85730; 86140; 86850; 86900; 86901; 86922; 93005; 99285; J7040; J7050; P9612; 12002; 80048; 82607; 82746; 82962; 83540; 83735; 84466; 87641; 96360; 96361; 97110-GP; 97162-GP; 97166-GO; 97530-GO; 99223; 99232; 99239; 99284; A9270-GY; J3475; J7060; P9016